=== PATIENT | male | born 1985 | race Caucasian/White ===

== ENCOUNTER 2025-08-23 17:40 | Emergency (ER) | payer OTHER ==
[~2025-08-23 17:40] MED LIST: Iopamidol 300 61% 100 ML VIAL FS ONE
[2025-08-23 18:30] LABS: Glucose, Urine (Dipstick) Normal (Negative); Leukocyte Negative (Negative); Protein, Urine (Dipstick) Negative (Neg-Trace); Specific Gravity, Urine 1.010 (1.005-1.030)
[2025-08-23 18:41] LABS: #Basophils 0.04 10x3/uL (0.0-0.2); #Eosinophils 0.34 10x3/uL (0.0-0.5); #Monocytes 0.50 10x3/uL (0.0-1.1); #Neutrophils 3.13 10x3/uL (1.5-8.4); %Basophils 0.6 % (0.0-2.0); %Eosinophils 5.0 % (0.0-6.0); %Lymphocytes 41.1 % (18.0-47.0); %Monocytes 7.3 % (0.0-10.0); %Neutrophils 45.9 % (40.0-75.0); Hematocrit 45.6 % (38.8-50.0); Hemoglobin 15.9 g/dL (13.5-17.5); Mean Corpuscular Hemoglobin 30.3 pg (27.0-33.0); Mean Corpuscular Volume 86.9 fL (81.2-95.1); Platelet Count 251 10x3/uL (150-450); Red Blood Cell (RBC) Count 5.25 10x6/uL (4.32-5.72); White Blood Cell (WBC) Count 6.83 10x3/uL (3.5-10.5)
[2025-08-23 18:56] LABS: Bacteria/HPF None Seen HPF (None Seen); CAUTI Indications for Culture Dysuria,urgency,freq; RBC/HPF 0-3 HPF (0-3); Urine Culture Reflex No No; WBC/HPF None Seen HPF (0-3)
[2025-08-23 19:04] LABS: ALT (SGPT) 15 U/L (Less than 45); AST (SGOT) 25 U/L (11-34); Albumin 4.9 g/dL (3.1-4.5); Alkaline Phosphatase 55 U/L (40-110); Anion Gap 14 mmol/L (10-20); BUN (Urea Nitrogen) 17 mg/dL (8.9-20.6); Bilirubin, Total 0.5 mg/dL (0.3-1.2); Calc. Creatinine Clearance 0 mL/min (70-130); Calcium 9.6 mg/dL (7.8-10.44); Carbon Dioxide 28 mmol/L (22-29); Chloride 103 mmol/L (98-107); Globulin 2.9 g/dL (2.4-3.5); Glucose 86 mg/dL (70-105); Potassium 3.7 mmol/L (3.5-5.1); Sodium 141 mmol/L (136-145)
== END 2025-08-23 19:44 | disposition home or self-care (01) ==
LOC: CSHERS 17:40
DX: N20.0 Calculus of kidney (principal)
CPT/HCPCS: 74177; 80053; 81001; 85025